=== PATIENT | female | born 1990 | race Caucasian/White ===

== ENCOUNTER 2018-03-05 15:39 | Emergency (ER) | payer OTHER ==
[~2018-03-05] VITALS: Ht 152.4 cm; Wt 79.4 kg
--- NOTE | 2018-03-05 16:58 | NUR ---
PT IS IN ROOM #2A, WAITING FOR DR THOMPSON EVALUATION.
[2018-03-05] MEDS ORDERED: HYDROMORPHONE 2 MG/1 ML DISP.SYRIN ONE (18:41)
[2018-03-05] MEDS: ONDANSETRON ODT 4 MG TAB.RAPDIS SL ONE (18:41)
[2018-03-05] MEDS: HYDROMORPHONE 1 MG/1 ML DISP.SYRIN IM ONE (18:41)
[2018-03-05] MEDS ORDERED: ONDANSETRON ODT 4 MG TAB.RAPDIS ONE (18:42)
--- NOTE | 2018-03-05 19:14 | NUR ---
REPORT TAKEN FROM [facility]IL[facility]. ASSUMING PT CARE AT THIS TIME.
[2018-03-05] MEDS ORDERED: SULFAMETH/TRIMETH 800/160 MG TABLET ONE (19:34)
[2018-03-05] MEDS: SULFAMETH/TRIMETH 800/160 MG TABLET PO ONE (19:38)
--- NOTE | 2018-03-05 19:54 | NUR ---
Patient discharged to home in stable conditon. Written and verbal after care instructions given. Patient verbalizes understanding of instructions. PT ambulated from ER w/ steady gait, accompanied by significant other. No distress noted. Pt took all personal belongings.
[2018-03-05 19:56] VITALS: BP 122/78
== END 2018-03-05 19:56 | disposition home or self-care (01) ==
LOC: ER 15:41
DX: L60.0 Ingrowing nail (principal); Z88.1 Allergy status to other antibiotic agents
CPT/HCPCS: A4217; A4663; J1170; Q0162

== ENCOUNTER 2018-03-07 14:22 | Emergency (ER) | payer OTHER ==
[~2018-03-07] VITALS: Ht 152.4 cm; Wt 79.4 kg
[2018-03-07] MEDS ORDERED: OXYCODONE/APAP 5-325 MG TABLET PO ONE (15:00)
[2018-03-07] MEDS ORDERED: OXYCODONE/APAP 5-325 MG TABLET ONE (15:08)
--- NOTE | 2018-03-07 16:14 | NUR ---
Patient discharged to home in stable conditon. Written and verbal after care instructions given. Patient verbalizes understanding of instructions.
== END 2018-03-07 16:17 | disposition home or self-care (01) ==
LOC: ER 14:23
DX: Z48.01 Encounter for change or removal of surgical wound dressing (principal); Z88.1 Allergy status to other antibiotic agents
CPT/HCPCS: 99283; A4217; A4663

== ENCOUNTER 2018-05-24 09:15 | Emergency (ER) | payer MEDICAID, OTHER ==
[~2018-05-24] VITALS: Ht 160 cm; Wt 72.6 kg
[2018-05-24] MEDS ORDERED: LIDOCAINE HCL 1% 20 ML VIAL ONE (09:43)
[2018-05-24] MEDS ORDERED: DEXAMETHASONE SOD PHOSPHATE 4 MG INJ ONE (09:43)
[2018-05-24] MEDS ORDERED: CEFTRIAXONE 1 G VIAL ONE (09:43)
[2018-05-24] MEDS ORDERED: DEXAMETHASONE SOD PHOSPHATE 4 MG INJ IM ONE (09:45)
[2018-05-24] MEDS ORDERED: CEFTRIAXONE 1 G VIAL IM ONE (09:45)
--- NOTE | 2018-05-24 10:19 | NUR ---
Patient discharged to home in stable conditon. Written and verbal after care instructions given. Patient verbalizes understanding of instructions.PT WALKS IN STEADY GAIT. PT TOLERATED ROCEPHIN IM WELL. NO REACTIOJN OR COMPLAIN. PT WITH SO.
== END 2018-05-24 10:20 | disposition home or self-care (01) ==
LOC: ER 09:15
DX: J02.9 Acute pharyngitis, unspecified (principal); Z88.1 Allergy status to other antibiotic agents
CPT/HCPCS: 96372 ×2; 99284; A4663; J0696; J1100; J3490